=== PATIENT | male | born 1975 | race Caucasian/White ===

== ENCOUNTER 2023-09-24 02:26 | Emergency (ER) | payer OTHER, SELFPAY ==
[2023-09-24 02:31] VITALS: BP 146/85; PULSE 61; TEMP 36.6; O2SAT 97; BMI 30.8
--- NOTE | 2023-09-24 02:49 | ED.EYEPROB1 ---
HPI - Eye Problem General Chief complaint: Eye Problems Stated complaint: eye injury Time Seen by Provider: 09/24/23 02:31 Source: patient Mode of arrival: walk-in Limitations: no limitations History of Present Illness HPI Narrative: woke up 5 days ago with burning discomfort of the right eye. PCP called in Tobramycin eye drops 2 days ago. States it has not help. Never had FB sensation of the eye. Able to see but a little blurry. Has photophobia. No associated headache. Related Data Home Medications ?Medication ?Instructions ?Recorded ?Confirmed allopurinol 100 mg tablet 100 mg PO DAILY 09/24/23 09/24/23 atorvastatin 10 mg tablet 10 mg PO DAILY 09/24/23 09/24/23 Allergies Allergy/AdvReac Type Severity Reaction Status Date / Time Penicillins Allergy Hives Verified 09/24/23 02:36 Review of Systems ROS Status of ROS 10 or more systems reviewed and unremarkable except as noted in history and below Exam Constitutional Vital Signs, click to edit/add: Last Vital Signs Temp 98 F 09/24/23 02:31 Pulse 61 09/24/23 02:31 Resp 16 09/24/23 02:31 BP 146/85 H 09/24/23 02:31 Pulse Ox 97 09/24/23 02:31 Common normals: no apparent distress, average body habitus, oriented x3, no limitations, healthy appearing, alert and well nourished [facility] Common normals: normocephalic and head/scalp atraumatic Eye Other: right eye injected. No chemosis. No obvious FB Respiratory Common normals: normal respiratory effort, no retractions, no use of accessory muscles and clear to auscultation bilaterally Cardio Common normals: regular rate, regular rhythm, S1 normal heart sound and S2 normal heart sound Extremity Common normals: normal to inspection and full ROM Neuro Common normals: oriented x3, CN's II-XII intact bilaterally, moves all extremities, no focal motor deficits and no sensory deficits noted Psych Appearance: grossly normal Course Vital Signs Vital signs: Vital Signs Temperature 98 F 09/24/23 02:31 Pulse Rate 61 09/24/23 02:31 Respiratory Rate 16 09/24/23 02:31 Blood Pressure 146/85 H 09/24/23 02:31 Pulse Oximetry 97 09/24/23 02:31 Temperature 98 F 09/24/23 02:31 Pulse Rate 61 09/24/23 02:31 Respiratory Rate 16 09/24/23 02:31 Blood Pressure 146/85 H 09/24/23 02:31 Pulse Oximetry 97 09/24/23 02:31 MDM - Eye Problem MDM Narrative Medical decision making narrative: presents with inflamed right eye. fluorescein instilled in the eye without focal uptake. Eye did feel better after Tetracaine drops. Patient has been using tobramycin eyedrops for a couple of days without improvement. Changed to erythromycin ointment and discharged home with plans to return in one day for recheck Discharge Plan Discharge Stand Alone Forms: Portal Instructions Chief Complaint: Eye Problems Clinical Impression: Bacterial conjunctivitis Patient Disposition: Home, Self-Care Condition: Good Mode of Transportation: Private Vehicle Prescriptions / Home Meds: No Action allopurinol 100 mg tablet 100 mg PO DAILY atorvastatin 10 mg tablet 10 mg PO DAILY Print Language: Faroese Instructions: Conjunctivitis (ED) Additional Instructions: return in one day for recheck Referrals: TERESA CAPONE DO [Primary Care Provider] - 1 week Discharge Date/Time: 09/24/23 03:08
[2023-09-24] MEDS: TETRACAINE HCL 0.5% OP SOL 80 DROP/4 ML BOTTLE OP (02:50)
[2023-09-24] MEDS: FLUORESCEIN SODIUM 1 MG STRIP OP (02:55)
[2023-09-24] MEDS: ERYTHROMYCIN OP OINT 0.5% 1 GM TUBE OP (03:01)
== END 2023-09-24 03:08 | disposition home or self-care (01) ==
PROVIDERS: Emergency Provider Internal Medicine; PCP Family Medicine
DX: H10.9 Unspecified conjunctivitis (principal)
CPT/HCPCS: 99284